=== PATIENT | female | born 1990 | race Caucasian/White ===

== ENCOUNTER → 2016-04-15 | Outpatient (CLI) | payer BC ==
[~2016-04-15] MED LIST: BCPILLS PO; CIPR1TAB10 PO; FLUC100T PO; FOLI1TAB7 PO; NAPR500T3 PO; PRENTAB26 PO
== END | disposition home or self-care (01) ==
LOC: C.LAB 08:26
PROVIDERS: ATTEND Obstetrics & Gynecology
DX: E28.8 Other ovarian dysfunction (principal)

== ENCOUNTER → 2016-05-04 | Outpatient (CLI) | payer BC | END | disposition home or self-care (01) | LOC: C.LAB 10:53 | PROVIDERS: ATTEND Obstetrics & Gynecology | DX: Z34.01 Encounter for supervision of normal first pregnancy, first trimester (principal) ==

== ENCOUNTER 2016-05-05 14:15 | Emergency (ER) | payer BC ==
[~2016-05-05] VITALS: Ht 154.9 cm; Wt 44.5 kg
[~2016-05-05 14:15] MED LIST changes: -FOLI1TAB7 PO; -PRENTAB26 PO
[2016-05-05 14:23] VITALS: TEMP 37; Ht 154.9 cm; Wt 44.5 kg
[2016-05-05] MEDS ORDERED: SODIUM CHLORIDE 0.9% 1000ML 1,000 ML IV STA (15:15)
--- NOTE | 2016-05-05 15:23 | EMERGENCY ROOM VISIT NOTE ---
History Report prepared by Bi: Joe Burgess Under the Supervision of: Dr. Donato Li D.O. First contact with patient: 14:40 Chief Complaint: ABDOMINAL PAIN Stated Complaint: SEVERE CRAMPING/POSITIVE PREG TEST History of Present Illness The patient is a 25 year old female who presents to the Emergency Room with complaints of persistent lower abdominal pain for the past 9 days. The patient has had the pain since her menstrual period on the same day. The period was on time and was completely normal with the exception of darker discharge the last two days. The patient has since had 7 positive home tests, however she had a negative blood test yesterday. The patient also complains of lower back pain. She denies fevers, chills, nausea, vomiting, leg pain / swelling, or vaginal discharge since her period ended. The patient and her have been trying to have children for the past year. She has never been or miscarried before. The patient has not seen a Tool Room Gear Machine Operator since this past summer. She denies STD history. The patient has not been taking fertility drugs. Review of Systems See HPI for pertinent positives & negatives. A total of 10 systems reviewed and were otherwise negative. Past Medical & Surgical Medical Problems: (1) UTI (urinary tract infection) Surgical Problems: (1) H/O laparoscopy (2) Hx of tonsillectomy Family History Cancer Hypertension Social History Smoking Status: Never Smoker Alcohol Use: occasionally Marital Status: in relationship Housing Status: lives with significant other Occupation Status: employed Current/Historical Medications Scheduled Folic Acid (Folvite), 1 MG PO DAILY Multivit/Min/Iron/Fol Ac/Pren ( Vitamin), 1 TAB PO DAILY Allergies Coded Allergies: Sulfa Drugs (Unverified Adverse Reaction, Unknown, 05/05/16) Physical Exam Vital Signs Date Time Temp Pulse Resp B/P Pulse Ox O2 Delivery O2 Flow Rate FiO2 05/05/16 17:22 92 16 113/77 95 05/05/16 16:15 91 16 109/64 96 05/05/16 15:28 82 05/05/16 14:23 37.0 103 18 135/82 100 Room Air Physical Exam GENERAL: Patient is awake, alert, and in no acute distress. Patient is resting comfortably and showing no signs of anxiety EYES: The conjunctivae are clear. The pupils are round and reactive. EARS, NOSE, MOUTH AND THROAT: The nose is without any evidence of any deformity. Mucous membranes are moist tongue is midline NECK: The neck is nontender and supple. RESPIRATORY: Normal respiratory effort is noted there is no evidence of wheezing rhonchi or rales CARDIOVASCULAR: Regular rate and rhythm noted there no murmurs rubs or gallops normal S1 normal S2 GASTROINTESTINAL: The abdomen is soft. Bowel sounds are present in all quadrants. Abdomen is nontender BACK: No midline tenderness or or step-off noted range of motion in flexion extension as well as rotation no signs of muscle spasm noted MUSCULOSKELETAL/EXTREMITIES: There is no evidence of gross deformity full range of motion is noted in the hips and shoulders SKIN: There is no obvious evidence of any rash. There are no petechiae, pallor or cyanosis noted. NEUROLOGIC: Patient is awake alert and oriented x3 strength is symmetric patellar reflexes are 2+ bilaterally Medical Decision & Procedures ER Provider Diagnostic Interpretation: Radiology results as stated below per my review and radiologist interpretation: PELVIC ULTRASOUND CLINICAL HISTORY: Severe cramping. Positive test. COMPARISON STUDY: Pelvic ultrasound August 30, 2011. TECHNIQUE: Transabdominal and transvaginal sonography of the pelvis was performed. FINDINGS: The uterus measures 7 x 5.3 x 3.6 cm. No intrauterine gestational sac is identified. The endometrium measures 8 mm in thickness. The right ovary measures 3 x 2.7 x 2 cm and the left measures 3.6 x 2.1 x 2 cm. Color flow is identified within each ovary. There was no free fluid. No adnexal mass was identified. IMPRESSION: 1. No intrauterine gestational sac identified. Correlation with beta hCG levels is recommended. If positive, differential considerations include a normal early intrauterine , missed spontaneous and sonographically occult ectopic patency. Clinical follow-up, including serial beta hCG levels, is recommended. 2. Unremarkable pelvic ultrasound. Electronically signed by: Henok Ramos M.D. 05/05/2016 4:49 PM Dictated Date/Time: 05/05/2016 4:47 PM Laboratory Results 05/05/16 15:20 Red Blood Count 4.67, Mean Corpuscular Volume 85.9, Mean Corpuscular Hemoglobin 30.2, Mean Corpuscular Hemoglobin Concent 35.2, Mean Platelet Volume 10.2, Neutrophils (%) (Auto) 53.0, Lymphocytes (%) (Auto) 39.4, Monocytes (%) (Auto) 5.9, Eosinophils (%) (Auto) 0.9, Basophils (%) (Auto) 0.7, Neutrophils # (Auto) 3.65, Lymphocytes # (Auto) 2.72, Monocytes # (Auto) 0.41, Eosinophils # (Auto) 0.06, Basophils # (Auto) 0.05 05/05/16 15:20 Test 05/05/16 15:19 05/05/16 15:20 Urine Color YELLOW Urine Appearance CLEAR (CLEAR) Urine pH 5.5 (4.5-7.5) Urine Specific [place] 1.006 (1.000-1.030) Urine Protein NEG (NEG) Urine Glucose (UA) NEG (NEG) Urine Ketones NEG (NEG) Urine Occult Blood NEG (NEG) Urine Nitrite NEG (NEG) Urine Bilirubin NEG (NEG) Urine Urobilinogen NEG (NEG) Urine Leukocyte Esterase NEG (NEG) White Blood Count 6.90 K/uL (4.8-10.8) Red Blood Count 4.67 M/uL (4.2-5.4) Hemoglobin 14.1 g/dL (12.0-16.0) Hematocrit 40.1 % (37-47) Mean Corpuscular Volume 85.9 fL (80-100) Mean Corpuscular Hemoglobin 30.2 pg (25-34) Mean Corpuscular Hemoglobin Concent 35.2 g/dl (32-36) Platelet Count 219 K/uL (130-400) Mean Platelet Volume 10.2 fL (7.4-10.4) Neutrophils (%) (Auto) 53.0 % Lymphocytes (%) (Auto) 39.4 % Monocytes (%) (Auto) 5.9 % Eosinophils (%) (Auto) 0.9 % Basophils (%) (Auto) 0.7 % Neutrophils # (Auto) 3.65 K/uL (1.4-6.5) Lymphocytes # (Auto) 2.72 K/uL (1.2-3.4) Monocytes # (Auto) 0.41 K/uL (0.11-0.59) Eosinophils # (Auto) 0.06 K/uL (0-0.5) Basophils # (Auto) 0.05 K/uL (0-0.2) RDW Standard Deviation 39.9 fL (36.4-46.3) RDW Coefficient of Variation 12.7 % (11.5-14.5) Immature Granulocyte % (Auto) 0.1 % Immature Granulocyte # (Auto) 0.01 K/uL (0.00-0.02) Anion Gap 9.0 mmol/L (3-11) Est Creatinine Clear Calc Drug Dose 95.9 ml/min Estimated GFR () 144.5 Estimated GFR (Non- 124.7 BUN/Creatinine Ratio 16.8 (10-20) Calcium Level 9.0 mg/dl (8.5-10.1) Total Bilirubin 0.5 mg/dl (0.2-1) Direct Bilirubin 0.1 mg/dl (0-0.2) Aspartate Amino Transf (AST/SGOT) 14 U/L (15-37) Alanine Aminotransferase (ALT/SGPT) 24 U/L (12-78) Alkaline Phosphatase 62 U/L (45-117) Total Protein 7.6 gm/dl (6.4-8.2) Albumin 4.3 gm/dl (3.4-5.0) Lipase 109 U/L (73-393) Human Chorionic Gonadotropin, Quant < 1 mIU/mL Laboratory results per my review. Medications Administered Medications (Trade) Dose Ordered Sig/Rogers Route Start Time Stop Time Status Last Admin Dose Admin Sodium Chloride (Nss 1000ml) 1,000 ml @ 999 mls/hr Q1H1M STAT IV 05/05/16 15:15 05/05/16 16:15 DC 05/05/16 15:27 999 MLS/HR ED Course 1455: Patient evaluated by my medical student. 1510: The patient was evaluated in room A10. A complete history and physical examination were performed. 1515: NSS 1000 ml @ 999 mls/hr. 1720: Reassessed the patient. Discussed the findings with her. She verbalized understanding and agreement. The patient is ready for discharge. Medical Decision Prior records/ancillary studies reviewed. Triage Nursing notes reviewed. Additional history obtained from the family. The patient's history was concerning for vaginal bleeding and abdominal pain. Differential diagnosis: Etiologies such as ectopic , dysfunction uterine bleeding, bleeding dyscrasia, trauma, infection, as well as others were entertained. The patient is a 25-year-old female who presented to the emergency department for an evaluation of pelvic cramping. The patient states that she had a normal period a few weeks ago but took a test which was positive. She had a negative serum test but was still concerned that she might be . The patient's laboratory results did not reveal any significant anemia or an elevated white blood cell count. Her test was negative. The patient's ultrasound showed no acute disease. I discussed the patient's laboratory and radiographic studies with her. She was treated with IV fluids. She was encouraged to rest and avoid any strenuous activity. He was encouraged to call her primary WELL SERVICES OPERATOR physician to schedule a follow-up appointment. She was also encouraged to return to the emergency department immediately if symptoms change worsen or the need arises. Impression Primary Impression: Pelvic pain Scribe Attestation The scribe's documentation has been prepared under my direction and personally reviewed by me in its entirety. I confirm that the note above accurately reflects all work, treatment, procedures, and medical decision making performed by me. Departure Information Dispostion Home / Self-Care Referrals Elias Mendoza M.D. (PCP) Forms HOME CARE DOCUMENTATION FORM, IMPORTANT VISIT INFORMATION, School Instructions, Work Instructions Patient Instructions ED Pelvic Pain [facility], My [facility] Additional Instructions Continue using Motrin and Tylenol as directed for pain. Call your family to schedule a follow-up appointment. Rest and avoid any strenuous activity.
[2016-05-05 15:29] LABS: URINE APPEARANCE CLEAR (CLEAR); URINE BILIRUBIN NEG (NEG); URINE COLOR YELLOW; URINE NITRITE NEG (NEG); URINE PH 5.5 (4.5-7.5); URINE SPECIFIC GRAVITY 1.006 (1.000-1.030); UROBILINOGEN NEG (NEG)
[2016-05-05 15:32] LABS: MANUAL MICROSCOPIC REQUIRED? NO; REVIEW REQ? NO
[2016-05-05 15:39] LABS: BASO % 0.7 %; BASO ABS # 0.05 K/uL (0-0.2); COMPLETE YES; EOS % 0.9 %; HEMATOCRIT 40.1 % (37-47); IG% 0.1 %; LYMPH % 39.4 %; LYMPH ABS # 2.72 K/uL (1.2-3.4); MEAN CELL VOLUME 85.9 fL (80-100); MEAN CORPUSCULAR HEMOGLOBIN 30.2 pg (25-34); MEAN CORPUSCULAR HGB CONC 35.2 g/dl (32-36); MEAN PLATELET VOLUME 10.2 fL (7.4-10.4); MONO % 5.9 %; PLATELET COUNT 219 K/uL (130-400); RED BLOOD COUNT 4.67 M/uL (4.2-5.4)
[2016-05-05] MEDS ORDERED: PRENTAB26 PO (15:51)
[2016-05-05] MEDS ORDERED: FOLI1TAB7 PO (15:51)
[2016-05-05 15:56] LABS: BUN/CREATININE RATIO 16.8 (10-20); CREATININE 0.63 mg/dl (0.60-1.20); POTASSIUM 3.5 mmol/L (3.5-5.1)
--- NOTE | 2016-05-05 16:50 | DIAGNOSTIC IMAGING REPORT ---
PELVIC ULTRASOUND CLINICAL HISTORY: Severe cramping. Positive test. COMPARISON STUDY: Pelvic ultrasound August 30, 2011. TECHNIQUE: Transabdominal and transvaginal sonography of the pelvis was performed. FINDINGS: The uterus measures 7 x 5.3 x 3.6 cm. No intrauterine gestational sac is identified. The endometrium measures 8 mm in thickness. The right ovary measures 3 x 2.7 x 2 cm and the left measures 3.6 x 2.1 x 2 cm. Color flow is identified within each ovary. There was no free fluid. No adnexal mass was identified. IMPRESSION: 1. No intrauterine gestational sac identified. Correlation with beta hCG levels is recommended. If positive, differential considerations include a normal early intrauterine , missed spontaneous and sonographically occult ectopic patency. Clinical follow-up, including serial beta hCG levels, is recommended. 2. Unremarkable pelvic ultrasound. Electronically signed by: Henok Ramos M.D. 05/05/2016 4:49 PM Dictated Date/Time: 05/05/2016 4:47 PM
[2016-05-05 17:22] VITALS: BP 113/77; PULSE 92; O2SAT 95
== END 2016-05-05 17:23 | disposition home or self-care (01) ==
LOC: C.EDB 14:18 → C.EDA 17:23
DX: R10.2 Pelvic and perineal pain (principal); Z87.440 Personal history of urinary (tract) infections; Z80.9 Family history of malignant neoplasm, unspecified; Z82.49 Family history of ischemic heart disease and other diseases of the circulatory system

== ENCOUNTER → 2016-08-30 | Outpatient (CLI) | payer BC ==
[~2016-08-30] MED LIST changes: -BCPILLS PO; -CIPR1TAB10 PO; -FLUC100T PO; +FOLI1TAB7 PO; -NAPR500T3 PO; +PRENTAB26 PO
[2016-08-30 10:08] LABS: PROLACTIN 8.98 ng/mL
== END | disposition home or self-care (01) ==
LOC: C.LAB 08:21
PROVIDERS: ATTEND Obstetrics & Gynecology
DX: N94.6 Dysmenorrhea, unspecified (principal); N92.0 Excessive and frequent menstruation with regular cycle

== ENCOUNTER → 2016-11-02 | Outpatient (CLI) | payer BC ==
[2016-11-03 13:04] LABS: CYTOMEGALOVIRUS IGG AB <0.60 U/ML
== END | disposition home or self-care (01) ==
LOC: C.LAB 12:15
PROVIDERS: ATTEND Specialist
DX: Z11.59 Encounter for screening for other viral diseases (principal)

== ENCOUNTER → 2016-11-09 | Outpatient (CLI) | payer BC ==
--- NOTE | 2016-11-09 11:47 | DIAGNOSTIC IMAGING REPORT ---
HYSTEROSALPINGOGRAM CLINICAL HISTORY: 26 years-old Female with SEVERE DYSMENORRHEA. FLUOROSCOPY TIME: 0.5 minutes. 4 images. COMPARISON: Pelvic ultrasound 05/05/2016 TECHNIQUE: Hysterosalpingogram performed in conjunction with the [employer] department. Radiology was present to provide fluoroscopy. FINDINGS: The endometrial canal appears normal in size and morphology. No endometrial contour abnormalities or filling defects. There is opacification of the fallopian tubes with bilateral spillage into the peritoneal cavity. IMPRESSION: 1. Normal morphologic appearance of the endometrial canal. 2. There is contrast spillage into the peritoneum bilaterally confirming bilateral fallopian tube patency. The above report was generated using voice recognition software. It may contain grammatical, syntax or spelling errors. Electronically signed by: Royer Orosco M.D. 11/09/2016 11:46 AM Dictated Date/Time: 11/09/2016 11:44 AM
--- NOTE | 2016-11-09 14:34 | OPERATIVE REPORT ---
DATE OF OPERATION: 11/09/2016 INDICATIONS FOR SURGERY: Pelvic pain and discomfort. PREOPERATIVE DIAGNOSIS: Pelvic discomfort. POSTOPERATIVE DIAGNOSIS: Normal spillage of both tubes. PROCEDURE: HYSTERSALPINGOGRAM. SURGEON: Dr. Medina. ESTIMATED BLOOD LOSS: 0. ANESTHESIA: None. OPERATIVE FINDINGS AND PROCEDURE: The patient was brought to the x-ray suite. A speculum was used to visualize the cervix, which was painted with Betadine solution and then the cervix was grasped at 12 o'clock with a single tooth tenaculum. An acorn cannula was then inserted into the cervical os. On the end of the cannula was a syringe with about 20 mL of radiopaque dye. The radiologist came into the suite and then under supervision from the radiologist dye was injected into the uterine cavity which showed prompt filling of the uterine cavity and spillage on both sides, somewhat dilated on the right side. Following this, instruments were removed. The patient tolerated the procedure well and left the x-ray suite in good condition. I attest to the content of the Intraoperative Record and any orders documented therein. Any exception s are noted below.
== END | disposition home or self-care (01) ==
LOC: C.RAD 09:49
PROVIDERS: ATTEND Obstetrics & Gynecology
DX: N94.6 Dysmenorrhea, unspecified (principal)

== ENCOUNTER → 2017-02-09 | Outpatient (CLI) | payer BC ==
[2017-02-09 19:28] LABS: THYROID STIMULATING HORMONE 1.34 uIu/ml (0.300-4.500)
== END | disposition home or self-care (01) ==
LOC: C.LAB 17:16
PROVIDERS: ATTEND Specialist
DX: E07.9 Disorder of thyroid, unspecified (principal)

== ENCOUNTER → 2017-03-23 | Outpatient (CLI) | payer BC ==
[2017-03-23 12:57] LABS: THYROID STIMULATING HORMONE 0.666 uIu/ml (0.300-4.500)
[2017-03-23 12:57] LABS: T4 FREE 0.91 ng/dl (0.80-1.60)
== END | disposition home or self-care (01) ==
LOC: C.LAB1850 11:16
DX: E03.9 Hypothyroidism, unspecified (principal)

== ENCOUNTER → 2017-05-10 | Outpatient (CLI) | payer BC ==
[~2017-05-10] MED LIST changes: -FOLI1TAB7 PO; +FOLI1TAB8 PO
[2017-05-10 08:57] LABS: LUTEINIZING HORMONE 62.68 IU/L
== END | disposition home or self-care (01) ==
LOC: C.LAB 07:39
PROVIDERS: ATTEND Specialist
DX: Z31.41 Encounter for fertility testing (principal)

== ENCOUNTER → 2017-05-29 | Outpatient (CLI) | payer BC | END | disposition home or self-care (01) | LOC: C.LAB 07:50 | PROVIDERS: ATTEND Specialist | DX: O09.00 Supervision of pregnancy with history of infertility, unspecified trimester (principal) ==

== ENCOUNTER → 2017-05-31 | Outpatient (CLI) | payer BC | END | disposition home or self-care (01) | LOC: C.LAB 07:58 | PROVIDERS: ATTEND Specialist | DX: O09.00 Supervision of pregnancy with history of infertility, unspecified trimester (principal) ==

== ENCOUNTER → 2017-07-05 | Outpatient (CLI) | payer BC | END | disposition home or self-care (01) | LOC: C.LABSPEC 15:41 | PROVIDERS: ATTEND Obstetrics & Gynecology | DX: O09.811 Supervision of pregnancy resulting from assisted reproductive technology, first trimester (principal) ==

== ENCOUNTER → 2017-07-13 | Outpatient (CLI) | payer BC | END | disposition home or self-care (01) | LOC: C.PAPS 16:02 | PROVIDERS: ATTEND Obstetrics & Gynecology | DX: Z01.419 Encounter for gynecological examination (general) (routine) without abnormal findings (principal) ==

== ENCOUNTER → 2017-07-13 | Outpatient (CLI) | payer BC ==
[2017-07-13 15:44] LABS: BASO % 0.3 %; BASO ABS # 0.03 K/uL (0-0.2); EOS % 1.4 %; EOS ABS # 0.15 K/uL (0-0.5); HEMATOCRIT 36.6 % (37-47); IG# 0.03 K/uL (0.00-0.02); LYMPH % 25.1 %; LYMPH ABS # 2.61 K/uL (1.2-3.4); MEAN CELL VOLUME 88.6 fL (80-100); MEAN CORPUSCULAR HEMOGLOBIN 31.5 pg (25-34); MEAN CORPUSCULAR HGB CONC 35.5 g/dl (32-36); MEAN PLATELET VOLUME 10.2 fL (7.4-10.4); MONO ABS # 0.62 K/uL (0.11-0.59); NEUT % 66.9 %; NEUT ABS # 6.97 K/uL (1.4-6.5); PLATELET COUNT 238 K/uL (130-400); RED CELL DISTRIBUTION WIDTH CV 12.6 % (11.5-14.5); RED CELL DISTRIBUTION WIDTH SD 40.8 fL (36.4-46.3); WHITE BLOOD COUNT 10.41 K/uL (4.8-10.8)
== END | disposition home or self-care (01) ==
LOC: C.LAB1850 14:33
PROVIDERS: ATTEND Obstetrics & Gynecology
DX: O09.811 Supervision of pregnancy resulting from assisted reproductive technology, first trimester (principal); E06.3 Autoimmune thyroiditis; Z3A.00 Weeks of gestation of pregnancy not specified

== ENCOUNTER 2020-07-09 01:40 | Inpatient (IN) ==
[2020-07-09] MEDS ORDERED: LACTATED RINGER'S 1,000 ML IV PRN (01:48)
[2020-07-09] MEDS ORDERED: OXYTOCIN 30 UNITS/500 ML BAG IV PRN ×2 (01:48→02:53)
[2020-07-09] MEDS ORDERED: LIDOCAINE HCL 1% 20 ML VIAL ONE (02:15)
[2020-07-09] MEDS ORDERED: KETOROLAC 30 MG/ML VIAL ONE (02:25)
--- NOTE | 2020-07-09 02:44 | History & Physical Report ---
Date of Service July 09, 2020 Assessment & Plan (1) resulting from in-vitro fertilization: Admit to L&D. Anticipate . Admission and Anticipated Discharge Date Admission Date: July 09, 2020 History of Present Illness Chief Complaint: labor Primary Care Provider: Elias Mendoza MD 30yo @ 38 04/12, spontaneous labor. SROM at home 1am. complicated by: IVF/ICSI--did do ICSI * Echo 03/31/20 - WNL *Growth US Q4wks @28wks *Weekly NSTs @36wks *Weekly AVELINA's @36wkds(ICSI only) Hypothyroidism *TFT's Q 4wks. 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 * dx with first IVF * FOB negative Allergies Allergy/AdvReac Type Severity Reaction Status Date / Time Sulfa (Sulfonamide AdvReac Unknown Hives Verified 07/06/20 14:04 Antibiotics) Home Medications Medication Instructions Recorded Confirmed Type prenat.vits,apryl,[id number] 1 tab PO DAILY 01/02/20 07/09/20 History levothyroxine 50 mcg tablet 50 mcg PO DAILY #90 tab 06/16/20 07/09/20 Rx Patient History Medical History (Updated 05/06/20 @ 16:07 by CRICKET Joe) Cervical high risk human papillomavirus (HPV) DNA test positive Encounter for anatomic survey Endometriosis with 37 or more completed weeks gestation Urinary retention Surgical History H/O laparoscopy Hx of tonsillectomy Family History Mother Endometriosis Father Hypertension Other Brain cancer Social History Smoking Status: Never smoker Hx Alcohol Use: No Hx Substance Use: No Preferred Language: Occitan Communication Ability: Effective Visual Impairment: No Limitations Lime Mixer Required: No Beliefs That Will Affect Care: None marital status: marital status details: Yoel (26) [phone] Current Living Situation: Spouse Current Living Situation Comment: lives with spouse, and son, 2 dogs. current occupational status: employed current occupation: client development director Other Information That Helps Us Care for You: No Feels Safe at Home: Yes Safety Concerns: Feels Safe At This Time Assistive Devices: Contacts and Glasses Review of Systems All systems reviewed & are unremarkable except as noted in HPI & below Physical Exam Physical Exam: 9cm dilated on arrival. FHT Cat 1 [place] Q 2 Constitutional: WD/WN, vitals as above Respiratory: normal respiratory effort, lungs clear to auscultation no respiratory distress Cardiovascular: Rate/Rhythm: regular rate and regular rhythm Gastrointestinal (Abdomen): Inspection/Auscultation: abdomen normal to inspection Percussion/Palpation: abdomen soft; abdomen nontender Gravid. No s/s chorio or abruption. Skin: no rashes, warm and dry Psychiatric: A+Ox3, euthymic affect Results & Data ([facility]) Vital Signs (Past 12 Hours) Vital Signs Temp Pulse Resp BP 07/09/20 02:30 88 18 119/70 07/09/20 02:22 36.6 C 102 H 18 129/83 07/09/20 01:48 36.6 C 102 H 18 129/83 Coding Level of Care Code None Diagnoses resulting from in-vitro fertilization O09.819
--- NOTE | 2020-07-09 02:50 | Delivery Summary ---
Vaginal Delivery Summary Date of Service July 09, 2020 Vaginal Delivery Summary and 1st Degree LAC Vaginal Delivery Summary: Pre-delivery diagnoses: 30yo @ 38 2/, spontaneous labor, IVF/ICSI , hypothyroidism Post-delivery diagnoses: same Procedure: spontaneous vaginal delivery, repair of 1st degree perineal laceration Surgeon: Jacquie Edge DO Complications: none Findings: Viable male . Apgars: 8/9 . Weight pending, please see nurse ry records. Estimated blood loss: 300ml Description of delivery: The patient progressed to complete without anesthesia. She then began to push. She spontaneously vaginally delivered a viable from the cephalic presentation. The head delivered in MARCO A position. The anterior shoulder delivered, followed by the posterior shoulder, followed by the body. No nuchal cord. The baby was placed on mother's abdomen and a spontaneous cry was heard. The cord was doubly clamped and cut. A segment was retained for cord gases. Cord blood was obtained. The placenta was delivered spontaneously intact with a 3-vessel cord. The uterus and vagina were swept of clots and debris. IV pitocin was given. The uterus became firm. The cervix, vagina, and perineum were inspected and a first degree perineal laceration was noted and repaired in standard fashion with 3-0 vicryl after injection of 1% lidocaine for local anesthetic. Excellent hemostasis was observed. The mother and baby are recovering in stable and good condition in the room. Sponge, needle and instrument counts were correct x 2. Jacquie Edge DO [facility] Vaginal Delivery Charge Vaginal Delivery Codes: 71498 global code for the antepartum, delivery, and post- Delivery Type Details: and 1st Degree LAC
[2020-07-09] MEDS ORDERED: ACETAMINOPHEN 325 MG TAB PO PRN (02:53)
[2020-07-09] MEDS ORDERED: bisacodyL 10 MG SUPP PR PRN (02:53)
[2020-07-09] MEDS ORDERED: BENZOCAINE 20% AER SPR 82.5 GM CAN EXT PRN (02:53)
[2020-07-09] MEDS ORDERED: oxyCODONE/ACETAMINOPHEN 5mg/325mg TAB PO PRN (02:53)
[2020-07-09] MEDS ORDERED: DIPHTHERIA/TETANUS/PERTUSSIS 0.5 ML SYR/VIAL IM ONE (02:53)
[2020-07-09] MEDS ORDERED: HYDROCORTISONE ACETATE 25 MG SUPP PR PRN (02:53)
[2020-07-09 03:10] LABS: Hematocrit (blood only) 38.6 % (37-47); Mean Corpuscular Hgb Conc 36.3 g/dL (32-36); Mean Platelet Volume 10.9 fL (7.4-10.4); Platelet Count 148 K/uL (130-400); RDW Coefficient of Variation 12.7 % (11.5-14.5); RDW Standard Deviation 42.1 fL (36.4-46.3); Red Blood Count 4.24 M/uL (4.2-5.4); White Blood Count 9.93 K/uL (4.8-10.8)
[2020-07-09] MEDS: SUPERCREAM 0.870% 15 GM JAR EXT PRN (04:38)
[2020-07-09] MEDS: LEVOTHYROXINE SODIUM 50 MCG TABLET PO SCH (06:22)
[2020-07-09] MEDS: PRENATAL VITAMIN 1 TAB PO SCH (07:20)
[2020-07-09] MEDS: IBUPROFEN 600 MG TAB PO PRN ×4 (07:20→22:05)
[2020-07-09] MEDS: DOCUSATE SODIUM 100 MG CAP PO SCH ×2 (07:20→22:05)
[2020-07-09] MEDS ORDERED: OR MISCELLANEOUS MED ONE (17:09)
[2020-07-10] MEDS: IBUPROFEN 600 MG TAB PO PRN ×3 (03:27→12:48)
[2020-07-10] MEDS: LEVOTHYROXINE SODIUM 50 MCG TABLET PO SCH (06:26)
[2020-07-10 06:45] LABS: Hematocrit (blood only) 34.7 % (37-47); Hemoglobin 12.3 g/dL (12.0-16.0)
--- NOTE | 2020-07-10 07:06 | Obstetrical Progress Note ---
Date of Service July 10, 2020 Assessment & Plan (1) resulting from in-vitro fertilization: A/P: Patient is a 38yo female on PPD#1 following at 38+2wga * Patient feels well today; eating well, voiding well, ambulating well * Pain well-controlled with ibuprofen 600mg q4h prn * PNL: Rh pos, RI, GBS neg, COVID neg * Routine care: OOB, ambulation, diet progression as tolerated * After discharge, will have six-week follow-up with Dr. Edge Subjective Patient is a 38yo female on PPD#1 following at 38+2wga. This morning, patient feels well overall. Reports mild, crampy abdominal pain well-ma naged on analgesics. Tolerating PO intake without nausea or vomiting. Patient has been able to ambulate without lightheadedness or dizziness. Voiding well without difficulty. Lochia is gradually improving over time. Patient is . Review of Systems Denies fever, chills, CP, SOB, cough, breast pain, dysuria, leg pain, leg swelling, headache, and changes in vision. Physical Exam General: alert, oriented, no acute distress Cardiac: regular rate and rhythm, no murmur appreciated Respiratory: lungs clear to auscultation bilaterally a/p, no wheezes/rales/rhonchi, no increased work of breathing, symmetrical chest rise, no respiratory distress Abd: normal gravid abdomen, soft, minimally tender, BS present : uterine fundus firm, palpable at umbilicus LE: no lower extremity edema bilaterally; no deep calf pain, Jacinto's negative bilaterally Results & Data ([facility]) Vital Signs (Past 12 Hours) Vital Signs Temp Pulse Resp BP Pulse Ox 07/10/20 03:02 36.8 C 83 18 105/72 97 07/09/20 23:30 36.5 C 66 18 101/65 97 07/09/20 19:30 36.7 C 69 18 118/74 99 Resident Activity Tracking Resident Involvement: Resident Care Provided Care Provided: OB Delivery
[2020-07-10] MEDS: SUPERCREAM 0.870% 15 GM JAR EXT PRN (08:32)
[2020-07-10] MEDS: DOCUSATE SODIUM 100 MG CAP PO SCH (08:32)
[2020-07-10] MEDS: PRENATAL VITAMIN 1 TAB PO SCH (08:32)
[2020-07-10] MEDS ORDERED: bisacodyL 5 MG TABEC PO SCH (20:00)
== END 2020-07-10 17:50 | disposition home or self-care (01) | DRG 807 ==
LOC: OPB 01:40 → 4S1 01:43 → 4S2 05:04